=== PATIENT | female | born 1950 | race Caucasian/White ===

== ENCOUNTER → 2023-01-25 | Outpatient (CLI) | payer MEDICARE, OTHER, SELFPAY ==
--- NOTE | 2023-01-25 17:05 | MRI_ITS ---
EXAM: MR LUMBAR SPINE WITHOUT INTRAVENOUS CONTRAST CLINICAL INDICATION: LUMBAR RADICULOPATHY, C/O ANTERIOR L LEG NUMBNESS TECHNIQUE: Multiplanar and multisequence MR images of the lumbar spine without intravenous contrast. COMPARISON: No relevant prior studies available. FINDINGS: VERTEBRAE: Mild dextroscoliosis. SPINAL CORD: Unremarkable. Normal position and signal intensity of the conus medullaris. SOFT TISSUES: Unremarkable. DISCS/SPINAL CANAL/NEURAL FORAMINA: L1-L2: Mild loss of disc height and disc signal. Mild generalized disc bulge. Mild bilateral facet arthropathy left greater than right. No spinal canal, lateral recess, or foraminal stenosis. L2-L3: Moderate loss of disc height and disc signal. Moderate generalized disc bulge. AP diameter of the dural sac is narrowed to 8 mm centrally. No lateral recess or foraminal stenosis. Moderate bilateral facet arthropathy. L3-L4: Mild loss of disc height and disc signal. Mild generalized disc bulge. Moderate bilateral facet arthropathy. No spinal stenosis. Mild left neural foraminal stenosis. L4-L5: Moderate bilateral facet arthropathy. Normal spinal canal and lateral recesses. Normal neuroforamina. L5-S1: Unremarkable. Normal disc height and morphology. Normal spinal canal and lateral recesses. Normal neuroforamina. MRI/Spine Lumbar (Routine) IMPRESSION: 1. Mild spondylosis L1-L2 without spinal canal or foraminal stenosis. Bilateral facet arthropathy. 2. Mild spinal stenosis L2-L3 due to generalized disc bulge. Bilateral facet arthropathy. 3. Mild spondylosis L3-L4. Mild left neural foraminal stenosis due to facet arthropathy. 4. Moderate bilateral facet arthropathy L4-L5. 5. Mild dextroscoliosis. Electronically Signed: Devon Brandt MD at 6:47 EDT ,
== END | disposition home or self-care (01) ==
LOC: MRI 16:47
PROVIDERS: PCP Internal Medicine; Referring Provider Anesthesiology Pain Medicine; Visit Provider Anesthesiology Pain Medicine
DX: M47.16 Other spondylosis with myelopathy, lumbar region (principal)
CPT/HCPCS: 72148

== ENCOUNTER 2023-04-29 23:39 | Emergency (ER) | payer MEDICARE, OTHER, SELFPAY ==
[2023-04-29 23:42] VITALS: BP 140/85; PULSE 98; RESP 18; TEMP 36.3; O2SAT 97; BMI 35.5
[2023-04-29 23:47] VITALS: BP 140/88; PULSE 99; RESP 16; TEMP 36.3; O2SAT 96
--- NOTE | 2023-04-30 00:16 | EDS_ITS ---
HPI History of Present Illness Chief Complaint: Dizziness Informant: patient, spouse/S.O. and EMS Narrative Narrative: Just prior to arrival patient suddenly had vertigo caused as she got out of bed where she was lying and watching TV. She thought she was going to fall. She did not. It felt like spinning and made her feel a little nauseated. Staying still makes the symptoms go away after just a couple minutes. She has triggered this several times since then, all with position changes of her head and/or body. No peripheral neurologic symptoms. No headache, syncope, tinnitus, earache, otorrhea, or hearing disturbance. No vision changes or diplopia. Never had this before. No history of a stroke takes no anticoagulants or antiplatelets. No medication changes recently. She has had a cold for the last 2 or 3 weeks, she still has symptoms of it, congestion and nonproductive cough. No fevers or chills. [facility] Medical History (Updated 04/30/23 @ 00:[address] Martínez Valdez MD) Depression Hyperlipidemia Hypertension Home Medications amlodipine 5 mg tablet 5 mg PO DAILY 04/29/23 [History Last Taken Unknown] escitalopram oxalate 20 mg tablet 20 mg PO DAILY 04/29/23 [History Last Taken Unknown] rosuvastatin 40 mg tablet 40 mg PO QHS 04/29/23 [History Last Taken Unknown] spironolactone 50 mg tablet 75 mg PO DAILY 04/29/23 [History Last Taken Unknown] diazepam 5 mg tablet 5 mg PO Q8 PRN vertigo 4 days #12 tabs 04/30/23 [Rx Last Taken Unknown] meclizine 25 mg tablet 25 mg PO Q8H PRN PRN Dizziness #20 tabs 04/30/23 [Rx Last Taken Unknown] ondansetron 4 mg disintegrating tablet 8 mg (2 x 4 mg) PO Q8H PRN PRN Nausea #20 tabs 04/30/23 [Rx Last Taken Unknown] Allergy/AdvReac Type Severity Reaction Status Date / Time No Known Allergies Allergy Verified 04/29/23 23:42 Social History Smoking Status: Never smoker ROS ROS ED Constitutional Constitutional ED: Denies chills or fever(s) Eyes Eyes: Denies change in vision or diplopia ENT ENT ED: Reports as per HPI, nasal congestion, rhinorrhea and vertigo; Denies ear pain, headache(s), sore throat or tinnitus Cardiovascular Cardiovascular: Denies chest pain or palpitations Respiratory/Chest Respiratory/Chest: Reports cough; Denies dyspnea Gastrointestinal Gastrointestinal: Reports nausea; Denies abdominal pain, diarrhea or vomiting Genitourinary Genitourinary ED: Denies dysuria or hematuria Musculoskeletal Musculoskeletal: Denies back pain or neck pain Integumentary Denies abscess or rash Neurologic Neurologic: Denies headache(s), paresthesias or weakness Psychiatric Psychiatric: Denies anxiety or suicidal thoughts EXAM Physical Exam Const Vital Signs: 04/29/23 23:42 04/29/23 23:47 04/29/23 23:47 Temperature 97.4 F L 97.4 F L Temperature Source Temporal Temporal Pulse Rate 98 99 Respiratory Rate 18 16 Respiratory Pattern Normal Blood Pressure 140/85 H 140/88 H Blood Pressure Mean 103 105 Pulse Ox 97 96 Oxygen Delivery Method Room Air Room Air 04/30/23 03:07 Temperature Temperature Source Pulse Rate 91 Respiratory Rate 18 Respiratory Pattern Blood Pressure 137/83 H Blood Pressure Mean 101 Pulse Ox 96 Oxygen Delivery Method Positive well nourished and well developed General Appearance ED: well developed and NAD HEENT Reports moist mucous membranes HEENT Narrative: Slight upper TM erythema bilaterally, no effusion or changes in light reflex. No otorrhea. normal EACs bilaterally. No periauricular lymphadenopathy. normocephalic and atraumatic Eyes PERRL and EOMs intact bilaterally Neck full ROM and supple Resp normal respiratory effort and clear to auscultation bilaterally Cardio regular rate, regular rhythm and no murmurs GI non-tender and non-distended Auscultation: normoactive bowel sounds Palpation: soft Back/Spine General Back: other FROM Extremity normal to inspection General Extremety ED: Negative for edema, pulses abnormal or tenderness General Extremity: Negative for edema or pulses abnormal Neuro oriented x3, CN's II-XII intact bilaterally and no sensory deficits noted Neuro Narrative: Normal [id number] and [id number] bilaterally. Positive Ro-Hallpike to the left, negative to the right. Not able to perform jolt test because she is having trouble keeping her eyes open when she is very vertiginous. Within 30 seconds or so of remaining still, her symptoms resolved. Horizontal nystagmus with [place]-Hallpike, but none at rest, no vertical or rotatory nystagmus. Sensorium / Orientation: awake and alert Motor Exam: strength 5/5 throughout Psych mental status grossly normal Skin no rashes or lesions noted and no wounds MDM MDM MDM Narrative Medical decision making narrative: History of intermittent, triggered, severe vertiginous symptoms and exam all consistent with peripheral etiology of vertigo, benign paroxysmal positional vertigo and labyrinthitis both in differential diagnosis here. Blood pressure 137/83 supports this as well. Supportive care advised for both, she was pretty miserable for the first maneuver during a Ro-Hallpike, and would not likely tolerate Pilar maneuver right now which we discussed and she is in agreement. Gave her meclizine and Zofran to start with. This helped a little but in trying to ambulate she had a difficult time so we then gave her oral diazepam 5 mg, which helped a lot more and she was able to ambulate and function enough to be comfortable going home. Discharge Plan Triage Chief Complaint: Dizziness ED Provider: Martínez Valdez Dx/Rx/DC Orders Clinical Impression: Peripheral vertigo involving left ear Instructions: ED BPV Vertigo, ED Labyrinthitis Prescriptions: New diazepam [diazepam] 5 mg tablet 5 mg PO Q8 PRN (Reason: vertigo) 4 Days Qty: 12 0RF meclizine [meclizine] 25 mg tablet 25 mg PO Q8H PRN PRN (Reason: Dizziness) Qty: 20 0RF ondansetron [ondansetron] 4 mg tablet,disintegrating 8 mg PO Q8H PRN PRN (Reason: Nausea) Qty: 20 0RF No Action amlodipine 5 mg tablet 5 mg PO DAILY spironolactone 50 mg tablet 75 mg PO DAILY escitalopram oxalate 20 mg tablet 20 mg PO DAILY rosuvastatin 40 mg tablet 40 mg PO QHS Patient Comments: TAKE 1 TABLET BY MOUTH ONCE DAILY Primary Care Provider: Sarah Henao Referrals: Sarah Henao MD [Primary Care Provider] - Abe Jacobsen MD [Med Staff - Active Staff] - 1 Week if not improving Disposition Disposition: Home, Self Care
[2023-04-30] MEDS: Ondansetron ODT 4 MG Tablet 8 MG PO (00:32)
[2023-04-30] MEDS: Meclizine HCl 25 MG Tablet PO (00:39)
[2023-04-30] MEDS: diazePAM 5 MG Tablet PO (02:04)
[2023-04-30 03:07] VITALS: BP 137/83; PULSE 91; RESP 18; O2SAT 96
== END 2023-04-30 03:28 | disposition home or self-care (01) ==
PROVIDERS: Emergency Provider Emergency Medicine; PCP Internal Medicine; Visit Provider Emergency Medicine
DX: H81.392 Other peripheral vertigo, left ear (principal); I10 Essential (primary) hypertension; E78.5 Hyperlipidemia, unspecified; Z79.899 Other long term (current) drug therapy
CPT/HCPCS: 99285